=== PATIENT | male | born 1985 | race Two or more races ===

== ENCOUNTER 2016-07-31 23:58 | Emergency (ER) | payer MEDICARE, OTHER | END 2016-08-01 00:45 | disposition left against medical advice (07) | LOC: CED 23:58 | DX: T40.1X1A Poisoning by heroin, accidental (unintentional), initial encounter (principal); F17.210 Nicotine dependence, cigarettes, uncomplicated; F11.10 Opioid abuse, uncomplicated | CPT/HCPCS: 99283 ==